=== PATIENT | male | born 1945 | race Caucasian/White ===

== ENCOUNTER → 2020-08-04 | Outpatient (REF) | payer MEDICARE, OTHER ==
[2020-08-04 16:50] LABS: BASO # 0.2 10^3/uL (0.0-0.2); BASO % 1.9 % (0.0-1.0); EOS # 0.2 10^3/uL (0.0-0.5); HEMATOCRIT 32.3 % (42.0-52.0); HEMOGLOBIN 9.2 g/dl (13.5-17.5); LYMPH # 1.1 10^3/uL (1.5-5.0); LYMPH % 10.3 % (24.0-44.0); MEAN CORPUSCULAR HGB CONC 28.5 g/dl (32.0-36.5); MEAN CORPUSCULAR VOLUME 70.2 fl (80.0-96.0); NEUTROPHILS # 7.7 10^3/uL (1.5-8.5); NEUTROPHILS % 74.4 % (36.0-66.0); PLATELET COUNT, AUTOMATED 604 10^3/uL (150-450); WHITE BLOOD COUNT 10.3 10^3/uL (4.0-10.0)
[2020-08-04 17:28] LABS: HEMOGLOBIN A1c 5.8 %
[2020-08-04 17:37] LABS: ALBUMIN 3.6 GM/DL (3.2-5.2); ALT/SGPT 16 U/L (12-78); BILIRUBIN,TOTAL 0.2 MG/DL (0.2-1.0); BLOOD UREA NITROGEN 11 MG/DL (7-18); CALCIUM LEVEL 9.4 MG/DL (8.8-10.2); CARBON DIOXIDE LEVEL 28 MEQ/L (21-32); CHLORIDE LEVEL 103 MEQ/L (98-107); CHOLESTEROL LEVEL 132 MG/DL (<200); CHOLESTEROL RISK RATIO 2.129 (<5); CREATININE FOR GFR 0.66 MG/DL (0.70-1.30); FERRITIN 109 NG/ML (26-388); FREE T4 1.22 NG/DL (0.76-1.46); GLOMERULAR FILTRATION RATE > 60.0 (>42); GLUCOSE, FASTING 78 MG/DL (70-100); HDL CHOLESTEROL 62 MG/DL (>40); IRON (FE) 25 UG/DL (65-175); LDL CHOLESTEROL 57 MG/DL (<100); NON-HDL-C 70 MG/DL; PERCENT SATURATION 6.4 % (19.7-50.0); POTASSIUM SERUM 4.9 MEQ/L (3.5-5.1); SODIUM LEVEL 138 MEQ/L (136-145); TOTAL IRON BINDING CAPACITY 393 UG/DL (250-450); TOTAL PROTEIN 7.7 GM/DL (6.4-8.2); TRIGLYCERIDES LEVEL 66 MG/DL (<150)
[2020-08-04 18:01] LABS: FOLATE 13.4 NG/ML; TOTAL 25(OH) VITAMIN D 33.5 NG/ML (30.0-100.0); VITAMIN B12 LEVEL 408 PG/ML
== END ==
LOC: M SFHCADAM 15:01
PROVIDERS: ATTEND Physician Assistant
DX: D50.9 Iron deficiency anemia, unspecified (principal); F17.218 Nicotine dependence, cigarettes, with other nicotine-induced disorders; C34.90 Malignant neoplasm of unspecified part of unspecified bronchus or lung; E11.65 Type 2 diabetes mellitus with hyperglycemia; I25.2 Old myocardial infarction; R53.83 Other fatigue
CPT/HCPCS: 80053; 80061; 82306; 82607; 82728; 82746; 83036; 83550; 84439; 84443; 85025; G0463